=== PATIENT | male | born 1960 | race Caucasian/White ===

== ENCOUNTER 2017-08-28 22:35 | Inpatient (IN) ==
[2017-08-29] MEDS ORDERED: Acetaminophen 325 MG TABLET PO PRN (02:12)
[2017-08-29] MEDS ORDERED: Naloxone 0.4 MG/ML INJ IVP PRN (02:12)
[2017-08-29] MEDS ORDERED: *HR* Heparin 5,000 UNIT/ML VIAL IVP PRN ×2 (02:24)
--- NOTE | 2017-08-29 02:36 | Internal Med History&Physical ---
Date of Encounter: 08/29/17 Time of Encounter: 02:00 Internal Medicine - H&P: HPI Chief complaint: Right arm pain and swelling Admitted From: Home Plans for Post Hospital Care: Home History of present illness: Mr. Jara is a 57 year old male presented to [facility] for right arm pain and swelling. Patient is generally in good health, no significant past medical history, except recent trauma, which and up with thoracostomy, chest tube and ICU stay in [facility]. Patient was recently discharged the from [facility] about 12 days ago. Since 8 to 10 days ago, he starts to have right arm pain, swelling, redness on skin, and the skin warmth. The condition is getting worse gradually and patient went to ER for evaluation. Patient denies fever. He said he does not have central line placed in [facility]. In the emergency room, CT of right arm shows DVT and cellulitis , no abscess. Patient was started with heparin drip and vancomycin. He was transferred to our hospital for further management. Past Med Surg Social Fam HX - Past Medical History Medical history: no medical history Psychiatric history: no psych history - Past Surgical History Surgical History: no surgical history - Social History Smoking Status: Current every day smoker Packs per day: 1.5 Smokeless Tobacco Status: No Alcohol use: none Drug use: none - Family History Father Living Status: Hx Family Endocrine Disorder: Yes (DM) Mother Living Status: Still Living Hx Family Cardiac Disorders: Yes (HTN) Internal Medicine - H&P: Meds Acetaminophen [Tylenol] 325 mg PO PRN PRN 08/29/17 [History] 3 Allergy/AdvReac Type Severity Reaction Status Date / Time No Known Allergies Allergy Verified 08/28/17 19:51 All Systems PM: A 10-system review of systems was performed and is negative for pertinent findings except as documented above in the HPI. - Constitutional Vitals: Temp Pulse Resp BP Pulse Ox 98.4 F 74 18 129/91 96 08/29/17 01:02 08/29/17 01:02 08/29/17 01:02 08/29/17 01:02 08/29/17 01:02 General appearance: Present: A&O X 3, no acute distress, answers questions appropriately - Head Head exam: Present: atraumatic, normocephalic - Eye Eye exam: Present: PERRL, conjuntiva pink, sclera anicteric Pupils: Present: PERRL - Neck Neck exam general surgery: Present: supple, trachea midline. Absent: lymphadenopathy - Respiratory Respiratory exam: Present: CTAB. Absent: accessory muscle use, rales, rhonchi, wheezes - Cardiovascular Cardiovascular exam: Present: RRR, +S1, +S2. Absent: diastolic murmur, gallop, rubs, systolic murmur - GI/Abdominal GI/Abdominal exam: Present: normal bowel sounds, soft, no peritoneal signs. Absent: distended, tenderness - Extremities Exam Extremities exam: Present: warm, radial pulses palpable and symmetrical. Absent : calf tenderness, cyanotic, pedal edema Additional comments: Right forearm swelling, tender, with skin redness and warmth. Distal pulse is normal. - Neurological Exam Neurological exam: Present: CN II-XII intact, oriented X3, no focal deficits. Absent: pronater drift, facial droop, speech deficit - Skin Skin exam: Present: dry, intact - Assessment and plan (1) DVT prophylaxis Current Visit: Yes Status: Acute Assessment and plan: Patient is on heparin drip. (2) Acute thrombosis of right basilic vein Current Visit: No Status: Acute Assessment and plan: Heparin drip was started in ER. Will continue. Will consult vascular surgery for further management. Pain medication for pain (3) Cellulitis of right arm Current Visit: No Status: Acute Assessment and plan: Continue vancomycin IV. Closely monitor patient - Time Spent With Patient Total time spent is greater than 50% in coordination of care (as documented) at patient's floor/unit and/or counseling patient: 40 minutes Greater than 35 minutes
[2017-08-29] MEDS: Heparin 25,000 UNIT/500 ML D5W 25,000 UNIT/500 ML BAG IVC SCH (02:45)
[2017-08-29 05:21] LABS: Basophils # 0.1 K/mcL (0.0-0.2); Basophils % 1.1 %; Eosinophils # 0.4 K/mcL (0.0-0.6); Eosinophils % 4.7 %; Hematocrit 45.6 % (37.5-50.1); Hemoglobin 16.1 g/dL (12.9-16.9); Immature Granulocytes % 0.3 % (0-4); Lymphocytes % 38.2 %; Mean Corpuscular HGB Conc 35.3 g/dL (31.6-35.5); Mean Corpuscular Hemoglobin 32.6 pg (28.0-33.3); Mean Corpuscular Volume 92.3 fL (83.0-100.0); Mean Platelet Volume 10.3 fL (9.4-12.4); Monocytes # 0.6 K/mcL (0.0-1.3); Monocytes % 7.4 %; Neutrophils # 3.8 K/mcL (1.6-8.9); Platelet Count 239 K/mcL (140-400); Red Blood Count 4.94 M/mcL (4.19-5.50); Red Cell Distribution Width 13.6 % (11.5-14.5); Segmented Neutrophils % 48.3 %
[2017-08-29 05:29] LABS: INR 1.2
[2017-08-29 05:31] LABS: Activated Partial Thrombo Time 101.8 Seconds (26.0-36.0)
[2017-08-29 05:41] LABS: BUN/Creatinine Ratio 21 (6-26); Blood Urea Nitrogen 16 mg/dL (6-20); Calcium 8.7 mg/dL (8.6-10.3); Carbon Dioxide 24 mEq/L (23-29); Chloride 107 mEq/L (98-107); Glucose 171 mg/dL (70-105); Magnesium 1.9 mg/dL (1.6-2.6); Osmolality,Calculated 289 (280-300); Potassium 3.6 mEq/L (3.5-5.1); Sodium 137 mEq/L (136-145); eGFR For African Americans > 60 (> 60); eGFR For Non-African Americans > 60 (> 60)
[2017-08-29] MEDS: Ketorolac 30 MG/ML VIAL IVP PRN ×2 (08:21→13:57)
--- NOTE | 2017-08-29 14:41 | Internal Med Progress Note ---
Date of Encounter: 08/29/17 Time of Encounter: 14:42 - Assessment and plan (1) Acute thrombosis of right basilic vein Current Visit: No Status: Acute Assessment and plan: recently hopsitalzied at [facility] and now with increasing pain, swelling and erythema to right antecubital site where he had an IV. Outside hospital right upper extremity CT concerning for distal cephalic and brachial vein as well as a basilic vein compatible with thrombosis. Cont heparin gtt for now. RUE doppler pending (2) Cellulitis of right arm Current Visit: No Status: Acute Assessment and plan: Continue vancomycin IV. Closely monitor patient (3) DVT prophylaxis Current Visit: Yes Status: Acute Assessment and plan: heparin gtt - Time Spent With Patient Total time spent is greater than 50% in coordination of care (as documented) at patient's floor/unit and/or counseling patient: - Subjective Interval history: Seen at bedside, says right arm is about the same. He is aware of need to wait for right upper extremity Doppler. - Constitutional Vitals: Temp Pulse Resp BP Pulse Ox 98.5 F 68 16 112/81 94 08/29/17 10:30 08/29/17 10:30 08/29/17 10:30 08/29/17 10:30 08/29/17 10:30 General appearance: Present: A&O X 3, no acute distress, answers questions appropriately - Head Head exam: Present: atraumatic, normocephalic - Eye Eye exam: Present: PERRL, conjuntiva pink, sclera anicteric Pupils: Present: PERRL - Neck Neck exam general surgery: Present: supple, trachea midline. Absent: lymphadenopathy - Respiratory Respiratory exam: Present: CTAB. Absent: accessory muscle use, rales, rhonchi, wheezes - Cardiovascular Cardiovascular exam: Present: RRR, +S1, +S2. Absent: diastolic murmur, gallop, rubs, systolic murmur - GI/Abdominal GI/Abdominal exam: Present: normal bowel sounds, soft, no peritoneal signs. Absent: distended, tenderness - Extremities Exam Extremities exam: Present: tenderness (Right arm with swelling, tenderness and erythema to right antecubital site), warm, radial pulses palpable and symmetrical. Absent: calf tenderness, cyanotic, pedal edema - Neurological Exam Neurological exam: Present: CN II-XII intact, oriented X3, no focal deficits. Absent: pronater drift, facial droop, speech deficit - Skin Skin exam: Present: dry, intact Internal Medicine: Result - Labs CBC & Chem 7: 08/29/17 05:07 08/29/17 05:07 Labs: Short CBC 08/29/17 Range/Units 05:07 WBC 7.9 (4.3-11.1) K/mcL Hgb 16.1 (12.9-16.9) g/dL Hct 45.6 (37.5-50.1) % Plt Count 239 (140-400) K/mcL Neutrophils # 3.8 (1.6-8.9) K/mcL BMP 08/29/17 05:07 Sodium 137 Potassium 3.6 Chloride 107 Carbon Dioxide 24 BUN 16 Creatinine 0.77 Glucose 171 H Calcium 8.7 - ABG Interpretation ABG results: PT/INR, D-dimer PT 13.0 Seconds (9.4-12.1) H 08/29/17 05:07 Consult Discharge Plan - Plan Referrals: NONE,PCP [Primary Care Provider] -
--- NOTE | 2017-08-29 17:30 | Vascular/Endovasc Consult Note ---
Date of Encounter: 08/29/17 Time of Encounter: 11:30 Assessment and Plan (1) Deep venous thrombosis Current Visit: Yes Status: Acute The pathophysiology and natural history of venous thromboembolism was discussed with the patient and all questions were answered. She has evidence of superficial thrombophlebitis of the cephalic vein as well as deep venous thrombosis of the right brachial vein. He is currently on a heparin drip and his symptoms have improved. There is no indication for inferior vena cava filter. Recommended the patient be discharged on oral anticoagulation until his deep venous thrombosis resolves. Qualifiers: DVT location: upper extremity Affected thrombotic vein of extremity: brachial Chronicity: acute Laterality: right Qualified Code(s): I82.621 - Acute embolism and thrombosis of deep veins of right upper extremity (2) Tobacco abuse Current Visit: Yes Status: Chronic He was counseled regarding smoking cessation. (3) Cellulitis of right arm Current Visit: No Status: Acute The patient is a right upper extremity cellulitis. He is currently on intravenous antibiotics. He reports that his symptoms have decreased since starting his antibiotics. The patient does report that he did have a IV in the right antecubital fossa during his previous hospitalization at [facility]. This appears to be likely source of his cellulitis. His CT reveals no evidence of abscess. Recommend continuing intravenous antibiotics. Her to oral antibiotics and patient remains afebrile with symptomatic improvement. (4) Thrombophlebitis of right arm Current Visit: No Status: Acute - History of Present Illness Consult date: 08/29/17 Requesting physician: Christa Vazquez Consult reason: right upper extremity DVT, Cellulitis Chief complaint: Right arm pain and swelling History of present illness: Mr. Jara is a 57 year old male who previously had chest trauma was admitted to the intensive care unit at [facility]. The patient was recently discharged from the hospital and began expressed right forearm pain and swelling with tenderness to the antecubital fossa. The patient then did noted erythema. He went to the [place] emergency to grow and was evaluated. Concern for cellulitis and possible superficial thrombophlebitis arose. Patient was not transferred to [facility]. Marcelo underwent a CT scan which revealed deep venous thrombosis superficial to revise and cellulitis of the right forearm and antecubital fossa. His placed on intravenous antibiotics and started on a heparin drip. Since admission and starting the medication the patient reports that his symptoms have improved significantly. He he reports increased range of motion and decreased pain and tenderness. Vascular surgery was counseled for further evaluation. The patient denies any chest pain or shortness of breath. He states that he did not have a central line or peripherally inserted central line during his hospital dissection. Past Med Surg Social Fam HX - Past Medical History Medical history: no medical history Psychiatric history: no psych history - Past Surgical History Surgical History: no surgical history - Social History Smoking Status: Current every day smoker Packs per day: 1.5 Smokeless Tobacco Status: No Alcohol use: none Drug use: none - Family History Father Living Status: Hx Family Endocrine Disorder: Yes (DM) Mother Living Status: Still Living Hx Family Cardiac Disorders: Yes (HTN) Medications and Allergies Acetaminophen [Tylenol] 325 mg PO DAILY PRN 08/29/17 [History] 3 Allergy/AdvReac Type Severity Reaction Status Date / Time No Known Allergies Allergy Verified 08/29/17 11:26 All Systems Review: The remainder of the systems were reviewed and are negative - Constitutional Constitutional: no chills, no fever(s) - Cardiovascular Cardiovascular: no chest pain at rest, no dyspnea at rest - Gastrointestinal Gastrointestinal: no abdominal pain - Hematological/Lymphatic Hematologic/Lymphatic: no easy bleeding, no easy bruising Exam Vital Signs, Last 4 Hours Temp Pulse Resp BP Pulse Ox 08/29/17 15:17 98.4 F 75 16 127/79 95 General: Present: Conversant, No Apparent Distress HEENT: Present: Atraumatic, Normocephaly, Pupils equal Neck: Absent: JVD, Lymphadenopathy, Left Carotid bruit, Right Carotid bruit Cardiac: Present: Reg Rate and Rhythm, Normal S1 and S2. Absent: No Murmur Lungs: Present: Normal Breath Sounds, No Wheeze, Rales, Rhonchi Neuro: Present: Alert and responsive, No focal deficits noted, Cranial nerves grossly intact, Motor nerves grossly intact, Sensory nerves grossly intact Abdomen: Present: Soft, Non-tender. Absent: Masses Vascular: Present: Normal capillary refill, Pulse, normal, Edema (Right forearm edema). Absent: Cyanosis Skin: Present: Other (Erythema present on the right medial forearm up to the antecubital fossa.). Absent: Wound/ulcer(s) Consult Discharge Plan - Plan Referrals: NONE,PCP [Primary Care Provider] -
[2017-08-30] MEDS: Heparin 25,000 UNIT/500 ML D5W 25,000 UNIT/500 ML BAG IVC SCH (03:49)
[2017-08-30 11:36] VITALS: BP 132/73
--- NOTE | 2017-08-30 11:39 | Discharge Summary ---
- NOTES TO OUTPATIENT PROVIDER Notes to Outpatient Provider: will need to remain on anticoagulation until resolution of right upper extremity DVT Orders not resulted at time of discharge: Pending orders 08/30/17 17:00 Vancomycin,Trough Timed 08/30/17 19:15 PTT [Activated Partial Thrombo Time] [COAG] Timed Date of Encounter: 08/30/17 Time of Encounter: 11:48 - Discharge Diagnosis (1) Acute thrombosis of right basilic vein Priority: Primary Status: Acute Assessment and Plan: recently hospitalized at [facility] and now with increasing pain, swelling and erythema to right antecubital site where he had an IV. Outside hospital right upper extremity CT concerning for distal cephalic/brachial vein and basilic vein thrombosis. He was started on heparin gtt and transferred to [facility] for Vascular consultation. RUE venous doppler showed superficial thrombophlebitis of the cephalic vein as well as deep venous thrombosis of the right brachial vein. Evaluated by Vascular Surgery who recommended anticoagulation until DVT resolves. Patient unfortunately does not have insurance at time of discharge and plan was to initiate Coumadin and keep him inpatient with heparin bridge until INR therapeutic however patient declined. He was discharged home on Xarelto (he was given 30 day supply prior to discharge). An appt was made prior to discharge for residency clinic as well. Patient will need to remain on anticoagulation until repeat imaging is obtained to ensure DVT has resolved. (2) Cellulitis of right arm Priority: Primary Status: Acute Assessment and Plan: suspect secondary to IV in the right antecubital fossa during his previous hospitalization at [facility]. Sx's improved with IV vanco. Discharge home on Doxycycline Hospital course: See assessment and plan for hospital course Discharge discussed with: patient (Seen and examined at bedside, says he feel better and would like to discharge home today. Discussed the need for anticoagulation until right DVT has resolved and recommended seen and patient on heparin drip while initiating Coumadin as discharge we challenging without insurance. Patient declined, stated he would take his chances on Medicaid being approved and did not want to stay inpatient. C/o some RUE tenderness but overall improved) - Time Spent with Patient Total time spent providing and/or coordinating discharge services: - Discharge Medications Prescriptions: Doxycycline 100 mg PO BID #14 capsule Rivaroxaban [Xarelto] 1 dose PO AD 30 Days pack Home Medications: Acetaminophen [Tylenol] 325 mg PO DAILY PRN 08/29/17 [History] Doxycycline 100 mg PO BID #14 capsule 08/30/17 [Rx] Rivaroxaban [Xarelto] 1 dose PO AD 30 Days pack 08/30/17 [Rx] Allergies/Adverse Reactions: 3 Allergy/AdvReac Type Severity Reaction Status Date / Time No Known Allergies Allergy Verified 08/29/17 11:26 Date of admission: 08/29/17 02:13 Primary care physician: PCP NONE Consults: 08/29/17 02:28 Consult to Vascular Surgery [CONS] Routine Consulting Provider: Vascular Surgery [place] Reason for Consult: Rt arm DVT, DR Medel called by [facility] Call Completed: Yes Discharging clinician: Anya Perkins Anticipated date of discharge: 08/30/17 - Constitutional Vitals: Temp Pulse Resp BP Pulse Ox 98.6 F 67 20 132/73 94 08/30/17 11:34 08/30/17 11:34 08/30/17 11:34 08/30/17 11:34 08/30/17 11:34 General appearance: Present: A&O X 3, no acute distress, answers questions appropriately - Head Head exam: Present: atraumatic, normocephalic - Eye Eye exam: Present: PERRL, conjuntiva pink, sclera anicteric Pupils: Present: PERRL - Neck Neck exam general surgery: Present: supple, trachea midline. Absent: lymphadenopathy - Respiratory Respiratory exam: Present: CTAB. Absent: accessory muscle use, rales, rhonchi, wheezes - Cardiovascular Cardiovascular exam: Present: RRR, +S1, +S2. Absent: diastolic murmur, gallop, rubs, systolic murmur - GI/Abdominal GI/Abdominal exam: Present: normal bowel sounds, soft, no peritoneal signs. Absent: distended, tenderness - Extremities Exam Extremities exam: Present: warm, radial pulses palpable and symmetrical. Absent : calf tenderness, cyanotic, pedal edema Additional comments: RUE tenderness and swelling to AC - Neurological Exam Neurological exam: Present: CN II-XII intact, oriented X3, no focal deficits. Absent: pronater drift, facial droop, speech deficit - Skin Skin exam: Present: dry, intact - Patient Status Disposition: Home, Self-Care Condition: Good Functional capacity at discharge: independent ambulation - Discharge Instructions Instructions: Doxycycline (By mouth), Rivaroxaban (By mouth), Cellulitis (DC), Deep Venous Thrombosis (DC) Follow Up With: Errol Cox DO [Resident] - 09/07/17 3:00 pm (Please arrive 15 minutes early.) - Diet and Activity Activity: increase activity as tolerated Diet: advance to your usual diet
[2017-08-30] MEDS ORDERED: Aminoglycoside Consult 1 EACH MC ONE (13:01)
== END 2017-08-30 13:02 | disposition home or self-care (01) | DRG 197 ==
LOC: 3BNU
PROVIDERS: ADMIT Internal Medicine; ATTEND Internal Medicine